=== PATIENT | female | born 1995 | race African-American/Black ===

== ENCOUNTER 2019-10-03 21:09 | Emergency (ER) | payer MEDICAID ==
[~2019-10-03] VITALS: Ht 167.6 cm; Wt 54.0 kg
[2019-10-03 21:32] VITALS: BP 133/79
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
--- NOTE | 2019-10-03 21:41 | NUR ---
PT REFUSED TO PROVIDE URINE SAMPLE
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
--- NOTE | 2019-10-03 21:55 | NUR ---
PT REFUSES TO GIVE URINE SAMPLE. ERMD MADE AWARE
--- NOTE | 2019-10-03 22:01 | NUR ---
Anushka geiger in [facility] - 10/03/19 at 2201 by [email or web address] AT BEDSIDE.
--- NOTE | 2019-10-03 22:01 | NUR ---
XRAY AT BEDSIDE.
--- NOTE | 2019-10-03 22:06 | NUR ---
Anushka geiger in [facility] - 10/03/19 at 2207 [facility]
[2019-10-03 22:12] VITALS: BP 133/79
--- NOTE | 2019-10-03 22:25 | NUR ---
PATIENT LEFT WITHOUT BEING SEEN BY DR. MORALES NO FURTHER CARE PROVIDED FOR PATIENT.
== END 2019-10-03 22:25 | disposition left against medical advice (07) ==
LOC: MED 21:09
DX: M25.512 Pain in left shoulder (principal); Z53.21 Procedure and treatment not carried out due to patient leaving prior to being seen by health care provider
CPT/HCPCS: 73030; Q0092; 99283

== ENCOUNTER 2021-07-06 09:30 | Observation (INO) | payer MEDICAID, SELFPAY ==
[~2021-07-06] VITALS: Ht 167.6 cm; Wt 62.6 kg
[2021-07-06] MEDS ORDERED: LACTATED RINGERS 1,000 ML IV SCH (10:00)
[2021-07-06] MEDS ORDERED: MORPHINE SULFATE 5 MG/ML VIAL IVP PRN (10:00)
[2021-07-06] MEDS ORDERED: ONDANSETRON 4 MG/2 ML VIAL IVP PRN (10:00)
[2021-07-06 11:40] LABS: APPEARANCE,URINE CLEAR (CLEAR); BILIRUBIN,URINE NEGATIVE (NEGATIVE); BLOOD, URINE 3+ (NEGATIVE); COLOR,URINE YELLOW (YELLOW); LEUKOCYTE ESTERASE ,URINE NEGATIVE (NEGATIVE); NITRITE, URINE NEGATIVE (NEGATIVE); UGLUCOSE NEGATIVE (NEGATIVE)
[2021-07-06 12:56] LABS: WBC,URINE 0-5 /HPF (0-5)
[2021-07-06 12:58] LABS: CALCIUM OXALATE CRYSTALS,UR None Seen /HPF (None Seen); COARSE GRANULAR CASTS,URINE None Seen /LPF (None Seen); FINE GRANULAR CASTS,URINE None Seen /LPF (None Seen); HYALINE CASTS, URINE None Seen /LPF (None Seen); OTHER CASTS, URINE None Seen /LPF (None Seen); OTHER CRYSTALS,URINE None Seen /HPF (None Seen); RED BLOOD CELL CASTS,URINE None Seen /LPF (None Seen); TRICHOMONAS,URINE None Seen /HPF (None Seen); TRIPLE PHOSPHATE CRYSTAL,UR None Seen /HPF (None Seen); URIC ACID CRYSTALS,URINE None Seen /HPF (None Seen); URINE AMORPHOUS URATE None Seen /HPF (None Seen); WAXY CASTS,URINE None Seen /LPF (None Seen); YEAST,URINE None Seen /HPF (None Seen)
[2021-07-06 12:59] LABS: RBC,URINE 11-20 (MOD) /HPF (0-5)
[2021-07-06] MEDS: BETAMETH ACET/BETAMETH NA PH 30 MG/5 ML VIAL IM SCH (16:00)
== END 2021-07-06 16:30 | disposition home or self-care (01) ==
LOC: MLD 09:30
PROVIDERS: ADMIT Obstetrics & Gynecology; ATTEND Obstetrics & Gynecology
DX: O20.0 Threatened abortion (principal); Z20.822 Contact with and (suspected) exposure to COVID-19; O23.592 Infection of other part of genital tract in pregnancy, second trimester; B96.89 Other specified bacterial agents as the cause of diseases classified elsewhere; O60.02 Preterm labor without delivery, second trimester; Z3A.24 24 weeks gestation of pregnancy
CPT/HCPCS: 59025; 76805; 76817; 81001; 87426; 96372; G0378; J0702; Q0092

== ENCOUNTER 2021-07-07 16:53 | Observation (INO) | payer MEDICAID, SELFPAY ==
[2021-07-07] MEDS ORDERED: BETAMETH ACET/BETAMETH NA PH 30 MG/5 ML VIAL IM ONE ×2 (17:04→17:05)
== END 2021-07-07 17:15 | disposition home or self-care (01) ==
LOC: MLD 16:53
PROVIDERS: ADMIT Obstetrics & Gynecology; ATTEND Obstetrics & Gynecology
DX: O46.92 Antepartum hemorrhage, unspecified, second trimester (principal); O26.872 Cervical shortening, second trimester; Z3A.23 23 weeks gestation of pregnancy
CPT/HCPCS: 59025; 96372; G0378; J0702; G0379